=== PATIENT | female | born 1960 | race Caucasian/White ===

== ENCOUNTER 2016-08-05 15:43 | Observation (INO) ==
[2016-08-05] MEDS ORDERED: Ondansetron 4 MG/2 ML VIAL IVP ONE ×2 (17:11→21:00)
[2016-08-05] MEDS ORDERED: 0.9 % Sodium Chloride 1,000 ML IVC ONE (17:11)
--- NOTE | 2016-08-05 17:17 | Emergency Department Note ---
Disposition Clinical Impression: Abdominal pain Qualifiers: Abdominal location: right lower quadrant Qualified Code(s): R10.31 - Right lower quadrant pain Disposition: Home, Self-Care Condition: Good Additional Instructions: 1) Follow up with your primary care doctor in the next 5 days or return to the emergency department sooner if symptoms worsen. 2) continue stay well-hydrated and plenty of fluids. 3) Tylenol and Motrin for pain Prescriptions: Ondansetron HCl [Zofran] 4 mg PO Q4H PRN #7 tablet PRN Reason: Nausea Referrals: Rylie Aleman [facility] MACHINE [employer]NER [Primary Care Provider] - Reasons to return: As we discussed, any worsening or returning symptoms which include but are not limited to abdominal pain, fevers, nausea, vomiting or any other concerning symptoms Forms: Work/School Release, ED Satisfaction Letter Time of Disposition: 18:34 Abdominal Pain HPI - General Chief Complaint: ED Abdominal Pain Stated Complaint: nausea, abd pain Time Seen by Provider: 08/05/16 16:57 Source: patient Mode of arrival: ambulatory Limitations: no limitations Nursing Notes Reviewed: Yes Vital Signs Reviewed: Yes - History of Present Illness HPI Narrative: 55 yo female presents for evaluation of abdominal pain. Patient states she has had diffuse and generalized abdominal pain for about 1 week. [place] some nausea with emesis. Patient and noted yesterday that the pain seemed to localize in the right lower quadrant. Patient states it pain is worse with direct palpation over the right lower quadrant. No fevers. No diarrhea or constipation. No chest pain stress breath. No dysuria. No hematuria. No vaginal discharge or bleeding. Patient denies any abdominal surgeries. Pain Scale: 8 - Related Data Previous Rx's Medication Instructions Recorded Ondansetron HCl [Zofran] 4 mg PO Q4H PRN #7 tablet 08/05/16 Allergies Allergy/AdvReac Type Severity Reaction Status Date / Time No Known Allergies Allergy Verified 08/05/16 15:48 All systems ED: reviewed and negative except as stated. Constitutional: Reports: as per HPI. Denies: fever Eyes: Reports: as per HPI ENT ED: Reports: as per HPI Cardiovascular: Reports: as per HPI. Denies: chest pain, palpitations Respiratory: Reports: as per HPI. Denies: cough, dyspnea Gastrointestinal: Reports: as per HPI, abdominal pain, nausea. Denies: vomiting , diarrhea, constipation Genitourinary: Reports: as per HPI Musculoskeletal: Reports: as per HPI Integumentary: Reports: as per HPI Neurological: Reports: as per HPI Psychiatric: Reports: as per HPI Endocrine: Reports: as per HPI Abdominal Pain PMH - Past Medical History Medical history: Reports: no medical history Female Surgical History: Reports: orthopedic, other Psychiatric history: Reports: no psych history - Social History Smoking status: Former smoker Alcohol use: Reports: none Drug use: Reports: none Physical Exam - General Limitations: no limitations General appearance: alert, in no apparent distress - Head Head exam: normocephalic, normal inspection - Eye Eye exam: Present: normal appearance, EOMI - ENT ENT exam: normal exam, mucous membranes moist - Neck Neck exam: Present: normal inspection, trachea midline - Chest Chest inspection: Present: normal inspection, symmetric chest wall rise - Respiratory Respiratory exam: Present: normal lung sounds bilaterally. Absent: respiratory distress - Cardiovascular Cardiovascular exam: Present: regular rate, normal rhythm - Abdominal Exam Abdominal exam: Present: soft, tenderness (All to moderate tenderness in the right lower quadrant), guarding (Voluntary), normal bowel sounds. Absent: distention, rebound, rigidity - Extremities Exam Extremities exam: Present: normal inspection. Absent: pedal edema - Expanded Lower Extremity Exam Neurovascular/Tendon exam: Present: normal capillary refill - Back Exam Back exam: Present: normal inspection. Absent: CVA tenderness (R), CVA tenderness (L) - Neurological Exam Neurological exam: Present: alert, CN II-XII intact - Skin Skin exam: Present: warm, dry, intact, normal color Course Course Narrative: Patient seen and examined. Patient's in no acute distress. Patient sitting at bedside. Patient does have mild to moderate tenderness the right lower quadrant. Vague abdominal symptoms prior to. Patient will get basic lab work, CT abdomen and pelvis with IV contrast. Patient denies any pain medicine. - Reevaluation(s) Reevaluation #1: The patient's resting comfortably. Talking on the phone. No pain at this time. Time: 18:31 Vital Signs Temperature 97.2 F L 08/05/16 15:48 Pulse Rate 60 08/05/16 15:48 Respiratory Rate 18 08/05/16 15:48 Blood Pressure 148/64 08/05/16 15:48 O2 Sat by Pulse Oximetry 100 08/05/16 15:48 Temperature 97.2 F L 08/05/16 15:48 Pulse Rate 60 08/05/16 15:48 Respiratory Rate 18 08/05/16 15:48 Blood Pressure 148/64 08/05/16 15:48 O2 Sat by Pulse Oximetry 100 08/05/16 15:48 Oxygen Delivery Oxygen Delivery Room Air Abdominal Pain - MDM Narrative Medical decision making narrative: I examined this patient and my medical decision-making was reviewed with the ABSORPTION AND ADSORPTION ENGINEER/PA/Advanced Practice Nurse/Resident Physician. I agree with the documented findings, disposition and treatment plan as described except to the extent set forth below. Patient presents today as evaluated by myself and Dr. Kat, I agree with his evaluation management plan [place] the patient stay. Patient's evidence of right lower quadrant abdominal pain nonsurgical abdomen at this morning for pain. No back pain no chest pain no fevers. No vomiting. Penetrated make a little more comfortable get some lab workup urinalysis and CT of her abdomen to rule out intra-abdominal pathology. She is in agreement with plan. - Lab Data Lab results reviewed: Yes I reviewed the patient's lab results. Result diagrams: 08/05/16 17:27 08/05/16 17:27 Lab Results 08/05/16 08/05/16 08/05/16 Range/Units 17:27 17:27 18:07 WBC 5.1 (4.3-11.1) K/mcL RBC 4.31 (3.82-4.97) M/mcL Hgb 13.4 (11.5-15.4) g/dL Hct 39.3 (35.3-44.9) % MCV 91.2 (83.0-100.0) fL MCH 31.1 (28.0-33.3) pg MCHC 34.1 (31.6-35.5) g/dL RDW 11.9 (11.5-14.5) % Plt Count 296 (140-400) K/mcL MPV 9.5 (9.4-12.4) fL Immature Gran % 0.2 (0-4) % Seg Neutrophils % 64.1 % Lymphocytes % 24.9 % Monocytes % 7.8 % Eosinophils % 2.0 % Basophils % 1.0 % Neutrophils # 3.3 (1.6-8.9) K/mcL Lymphocytes # 1.3 (0.6-4.6) K/mcL Monocytes # 0.4 (0.0-1.3) K/mcL Eosinophils # 0.1 (0.0-0.6) K/mcL Basophils # 0.1 (0.0-0.2) K/mcL Sodium 141 (136-145) mEq/L Potassium 4.0 (3.5-4.5) mEq/L Chloride 106 (98-109) mEq/L Carbon Dioxide 24 (19-29) mEq/L BUN 12 (7-20) mg/dL Creatinine 0.81 (0.57-1.11) mg/dL Est GFR ( Amer) > 60 (> 60) Est GFR (Non-Af Amer) > 60 (> 60) BUN/Creatinine Ratio 15 (6-26) Glucose 96 (70-99) mg/dL Calculated Osmolality 292 (280-300) Calcium 9.6 (8.6-10.8) mg/dL Total Bilirubin 0.6 (0.2-1.2) mg/dL Direct Bilirubin 0.2 (0.0-0.5) mg/dL Indirect Bilirubin 0.4 (0.0-1.2) mg/dL AST 26 (5-34) Units/L ALT 13 (0-55) Units/L Alkaline Phosphatase 74 (38-126) Units/L Serum Total Protein 7.5 (6.0-8.3) g/dL Albumin 4.1 (3.5-5.0) g/dL Globulin 3.4 (2.4-3.5) g/dL Albumin/Globulin Ratio 1.2 (1.1-2.2) Lipase 32 (8-78) Units/L Urine Color Yellow (Yellow) Urine Clarity Clear (Clear) Urine pH 7.0 (5.0-8.0) pH Units Ur Specific [place] 1.007 L (1.010-1.025) Urine Protein Negative (Neg-Trace) mg/dL Urine Glucose (UA) Normal (Normal) mg/dL Urine Ketones Negative (Negative) mg/dL Urine Blood Negative (Negative) Urine Nitrite Negative (Negative) Urine Bilirubin Negative (Negative) Urine Urobilinogen Normal (Normal) mg/dL Ur Leukocyte Esterase Negative (Negative) Ur Culture Indicated? NO (NO) - EKG Data EKG attestation: Yes I reviewed and interpreted this EKG. EKG shows normal: sinus rhythm Rate: bradycardia Rhythm: NSR [place]/QRS: normal Q waves: v1 Interpretation: no acute changes
[2016-08-05 17:35] LABS: Basophils # 0.1 K/mcL (0.0-0.2); Eosinophils # 0.1 K/mcL (0.0-0.6); Hematocrit 39.3 % (35.3-44.9); Hemoglobin 13.4 g/dL (11.5-15.4); Immature Granulocytes % 0.2 % (0-4); Lymphocytes # 1.3 K/mcL (0.6-4.6); Lymphocytes % 24.9 %; Mean Corpuscular HGB Conc 34.1 g/dL (31.6-35.5); Mean Corpuscular Hemoglobin 31.1 pg (28.0-33.3); Mean Corpuscular Volume 91.2 fL (83.0-100.0); Mean Platelet Volume 9.5 fL (9.4-12.4); Monocytes # 0.4 K/mcL (0.0-1.3); Monocytes % 7.8 %; Neutrophils # 3.3 K/mcL (1.6-8.9); Platelet Count 296 K/mcL (140-400); Red Blood Count 4.31 M/mcL (3.82-4.97); Red Cell Distribution Width 11.9 % (11.5-14.5); Segmented Neutrophils % 64.1 %
[2016-08-05 17:50] LABS: Alanine Aminotransferase 13 Units/L (0-55); Albumin 4.1 g/dL (3.5-5.0); Albumin/Globulin Ratio 1.2 (1.1-2.2); Alkaline Phosphatase 74 Units/L (38-126); Aspartate Amino Transferase 26 Units/L (5-34); BUN/Creatinine Ratio 15 (6-26); Bilirubin,Direct 0.2 mg/dL (0.0-0.5); Bilirubin,Indirect 0.4 mg/dL (0.0-1.2); Bilirubin,Total 0.6 mg/dL (0.2-1.2); Blood Urea Nitrogen 12 mg/dL (7-20); Calcium 9.6 mg/dL (8.6-10.8); Carbon Dioxide 24 mEq/L (19-29); Chloride 106 mEq/L (98-109); Globulin 3.4 g/dL (2.4-3.5); Glucose 96 mg/dL (70-99); Lipase 32 Units/L (8-78); Osmolality,Calculated 292 (280-300); Sodium 141 mEq/L (136-145); Total Protein 7.5 g/dL (6.0-8.3); eGFR For African Americans > 60 (> 60); eGFR For Non-African Americans > 60 (> 60)
[2016-08-05 18:19] LABS: Bilirubin,Urine Negative (Negative); Blood,Urine Negative (Negative); Clarity,Urine Clear (Clear); Color,Urine Yellow (Yellow); Glucose,Urine (UA) Normal (Normal); Ketones,Urine Negative (Negative); Leukocyte Esterase,Urine Negative (Negative); Nitrite,Urine Negative (Negative); Protein,Urine Negative (Neg-Trace); Specific Gravity,Urine 1.007 (1.010-1.025); Urobilinogen,Urine Normal (Normal)
--- NOTE | 2016-08-05 18:53 | Emergency Department Note ---
Disposition Clinical Impression: Acute appendicitis Qualifiers: Acute appendicitis type: unspecified acute appendicitis type Qualified Code(s) : K35.80 - Unspecified acute appendicitis Abdominal pain Qualifiers: Abdominal location: right lower quadrant Qualified Code(s): R10.31 - Right lower quadrant pain Disposition: Admitted As Inpatient Condition: Good Prescriptions: Ondansetron HCl [Zofran] 4 mg PO Q4H PRN #7 tablet PRN Reason: Nausea Referrals: Rylie Aleman, MANAGER [employer] [Primary Care Provider] - Forms: ED Satisfaction Letter, Work/School Release Abdominal Pain HPI - General Chief Complaint: ED Abdominal Pain Stated Complaint: nausea, abd pain Time Seen by Provider: 08/05/16 16:57 Source: patient Mode of arrival: ambulatory - History of Present Illness Pain Scale: 8 - Related Data Allergies Allergy/AdvReac Type Severity Reaction Status Date / Time No Known Allergies Allergy Verified 08/05/16 15:48 Constitutional: Reports: as per HPI. Denies: fever Eyes: Reports: as per HPI ENT ED: Reports: as per HPI Cardiovascular: Reports: as per HPI. Denies: chest pain, palpitations Respiratory: Reports: as per HPI. Denies: cough, dyspnea Gastrointestinal: Reports: as per HPI, abdominal pain, nausea. Denies: vomiting , diarrhea, constipation Genitourinary: Reports: as per HPI Musculoskeletal: Reports: as per HPI Integumentary: Reports: as per HPI Neurological: Reports: as per HPI Psychiatric: Reports: as per HPI Endocrine: Reports: as per HPI Abdominal Pain PMH - Past Medical History Medical history: Reports: no medical history Female Surgical History: Reports: orthopedic, other Psychiatric history: Reports: no psych history - Social History Smoking status: Former smoker Alcohol use: Reports: none Drug use: Reports: none Physical Exam - General Limitations: no limitations General appearance: alert, in no apparent distress Course Course Narrative: This documentation is a continuation of the prior documentation. - Reevaluation(s) Reevaluation #1: Repeat abdominal exam shows moderate tenderness to deep palpation right lower quadrant. Voluntary guarding. No rebound. Patient does not want any pain medicine. Time: 18:53 Vital Signs Temperature 97.2 F L 08/05/16 15:48 Pulse Rate 60 08/05/16 15:48 Respiratory Rate 18 08/05/16 15:48 Blood Pressure 148/64 08/05/16 15:48 O2 Sat by Pulse Oximetry 100 08/05/16 15:48 Temperature 97.2 F L 08/05/16 15:48 Pulse Rate 60 08/05/16 15:48 Respiratory Rate 18 08/05/16 15:48 Blood Pressure 148/64 08/05/16 15:48 O2 Sat by Pulse Oximetry 100 08/05/16 15:48 Oxygen Delivery Oxygen Delivery Room Air Abdominal Pain - MDM Narrative Medical decision making narrative: 55-year-old female present for evaluation abdominal pain. Patient states that her pain was generalized in the past 24 hours or so it has became more localized in the right lower quadrant. No fevers. Patient's lab work reveals no leukocytosis with normal chemistries. Patient stated that she did not want any pain medicine. Patient's CAT scan shows acute appendicitis. Patient received IV fluid hydration and Antiemetics. Patient's been nothing by mouth since noon. Spoke with Dr. Arrieta who states that he will be in to see the patient. Patient's updated on plan of care and agree. - Lab Data Lab results reviewed: Yes I reviewed the patient's lab results. Result diagrams: 08/05/16 17:27 08/05/16 17:27 Lab Results 08/05/16 08/05/16 08/05/16 Range/Units 17:27 17:27 18:07 WBC 5.1 (4.3-11.1) K/mcL RBC 4.31 (3.82-4.97) M/mcL Hgb 13.4 (11.5-15.4) g/dL Hct 39.3 (35.3-44.9) % MCV 91.2 (83.0-100.0) fL MCH 31.1 (28.0-33.3) pg MCHC 34.1 (31.6-35.5) g/dL RDW 11.9 (11.5-14.5) % Plt Count 296 (140-400) K/mcL MPV 9.5 (9.4-12.4) fL Immature Gran % 0.2 (0-4) % Seg Neutrophils % 64.1 % Lymphocytes % 24.9 % Monocytes % 7.8 % Eosinophils % 2.0 % Basophils % 1.0 % Neutrophils # 3.3 (1.6-8.9) K/mcL Lymphocytes # 1.3 (0.6-4.6) K/mcL Monocytes # 0.4 (0.0-1.3) K/mcL Eosinophils # 0.1 (0.0-0.6) K/mcL Basophils # 0.1 (0.0-0.2) K/mcL Sodium 141 (136-145) mEq/L Potassium 4.0 (3.5-4.5) mEq/L Chloride 106 (98-109) mEq/L Carbon Dioxide 24 (19-29) mEq/L BUN 12 (7-20) mg/dL Creatinine 0.81 (0.57-1.11) mg/dL Est GFR ( Amer) > 60 (> 60) Est GFR (Non-Af Amer) > 60 (> 60) BUN/Creatinine Ratio 15 (6-26) Glucose 96 (70-99) mg/dL Calculated Osmolality 292 (280-300) Calcium 9.6 (8.6-10.8) mg/dL Total Bilirubin 0.6 (0.2-1.2) mg/dL Direct Bilirubin 0.2 (0.0-0.5) mg/dL Indirect Bilirubin 0.4 (0.0-1.2) mg/dL AST 26 (5-34) Units/L ALT 13 (0-55) Units/L Alkaline Phosphatase 74 (38-126) Units/L Serum Total Protein 7.5 (6.0-8.3) g/dL Albumin 4.1 (3.5-5.0) g/dL Globulin 3.4 (2.4-3.5) g/dL Albumin/Globulin Ratio 1.2 (1.1-2.2) Lipase 32 (8-78) Units/L Urine Color Yellow (Yellow) Urine Clarity Clear (Clear) Urine pH 7.0 (5.0-8.0) pH Units Ur Specific [place] 1.007 L (1.010-1.025) Urine Protein Negative (Neg-Trace) mg/dL Urine Glucose (UA) Normal (Normal) mg/dL Urine Ketones Negative (Negative) mg/dL Urine Blood Negative (Negative) Urine Nitrite Negative (Negative) Urine Bilirubin Negative (Negative) Urine Urobilinogen Normal (Normal) mg/dL Ur Leukocyte Esterase Negative (Negative) Ur Culture Indicated? NO (NO) - Radiology Data Radiology results reviewed: Yes I reviewed the patient's radiology results. Abdomen/Pelvis CT 08/05/16 17:13 IMPRESSION: Acute appendicitis with mild pelvic free fluid. Benign appearing cystic lesion within the pancreatic tail. Diverticulosis coli. D/ / Iain Tan MD / Iain Tan MD Interpreting Provider: Iain Tan MD S.B.A.R. - S.B.A.R. Situation: Demographics Background: Presenting Complaint Assessment: Vital Signs, Course and respsone to treatment, Exam Concerns, Patient/Family Expectation, Pertinant Lab Results Recommendation: Barrier(s) to disposition, Recommendation based on pending studies, treatments, or consults
[2016-08-05] MEDS ORDERED: Bupivacaine/EPI 1:200k 0.25%PF 30 ML VIAL ONE (19:29)
[2016-08-05] MEDS ORDERED: *HR* FentaNYL (PF) 100 MCG/2 ML VIAL ONE (19:36)
[2016-08-05] MEDS ORDERED: *HR* Propofol 200 MG/20 ML VIAL IVP ONE (19:36)
[2016-08-05] MEDS ORDERED: Lidocaine -MPF 2% 2 ML VIAL ONE (19:36)
[2016-08-05] MEDS ORDERED: Dexamethasone 4 MG/ML VIAL ONE (19:36)
[2016-08-05] MEDS ORDERED: Ondansetron 4 MG/2 ML VIAL ONE ×2 (19:36→20:56)
[2016-08-05] MEDS ORDERED: *HR* Midazolam HCl 2 MG/2 ML VIAL ONE (19:36)
[2016-08-05] MEDS ORDERED: *HR* Rocuronium Bromide 50 MG/5 ML VIAL ONE (19:36)
[2016-08-05] MEDS ORDERED: Lidocaine -MPF 4% 5 ML AMPUL ONE (19:37)
--- NOTE | 2016-08-05 19:48 | General Surg History&Physical ---
Date of Encounter: 08/05/16 Time of Encounter: 19:20 History of Present Illness Chief complaint: Right lower quadrant abdominal pain HPI: Ms. Lopez is a 55 year old female who presents to the emergency department with approximately 36-48 hour history of progressive right lower quadrant abdominal pain. The patient indicates that she has "been ill" for the past several weeks describing epigastric abdominal pain and pyrosis but in the last 48 hours she has had abrupt onset of right lower quadrant abdominal pain which has progressed in severity. This ultimately prompted the patient to present to the emergency department for further evaluation and treatment. White count was normal but CT scan was abnormal demonstrating a dilated appendix measuring approximately 13 mm in diameter with surrounding inflammatory changes and edema compatible with acute appendicitis. Past medical history is unremarkable; the patient denies any history of cardiac , pulmonary, or renal disease. No hypertension or diabetes. Medications: Benadryl when necessary sleep Allergies: No known drug allergies Surgical history: Tubal ligation, carpal tunnel release Social history: Patient is , lives at home with her spouse; she is G3, P2 ; she does not smoke, she quit recently 30 years ago. She denies any alcohol or illicit drug use. 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 Family history is noncontributory Physical examination: Thin age-appropriate, female resting comfortably in her hospital bed. She is afebrile, 97.9; pulse 56, respirations 18, blood pressure 133/84. Skin is warm, without obvious jaundice Lungs: Clear to auscultation, no abdominal pain with deep inspiration Cardiac: Rate was slow but without irregularity, no appreciable murmurs Abdomen: Soft, tender in the right lower quadrant without discernible masses. It was no referred pain from the left lower quadrant. No rebound. Bowel sounds were active Extremities: No obvious clubbing cyanosis or edema Laboratories: White count 5.1, hemoglobin 13.4, hematocrit 39.3; platelet count 96,000. Electrolytes, BUN, creatinine - within normal limits. LFTs also within normal limits. Urinalysis was unremarkable. Impression: A 55-year-old female with progressive abdominal pain for the last 48 hours. Signs and symptoms consistent with acute appendicitis corroborated by CT findings. The patient is a good candidate for laparoscopic appendectomy and understands that an open appendectomy may become necessary. Risks of surgery include hemorrhage, infection, intra-abdominal abscess, injury to adjacent structures and possible removal of a normal appendix. Alternative to surgery is admission, IV pain medication, antibiotics, serial abdominal exams with discharge home if her symptoms subside. Risks of this treatment include worsening acute appendicitis including perforation which would then lead to a much more complicated surgery and prolonged recovery. The patient has discussed the situation with her and is willing to proceed with surgery. Surgical consent has been obtained. Postoperative care will be rendered on 3A.. . Past Med Surg Social Fam HX - Past Medical History Medical history: no medical history Psychiatric history: no psych history - Social History Smoking Status: Former smoker Alcohol use: none Drug use: none Medications and Allergies DiphenhydraMINE [Benadryl] 25 mg PO HS PRN 08/05/16 [History] Allergies No Known Allergies Allergy (Verified 08/05/16 15:48) Review of Systems All systems PM: A 10-system review of systems was performed and is negative for pertinent findings except as documented above in the HPI. General Surgery Exam Initial Vital Signs Temp Pulse Resp BP Pulse Ox 97.2 F L 60 18 148/64 100 08/05/16 15:48 08/05/16 15:48 08/05/16 15:48 08/05/16 15:48 08/05/16 15:48 Results - Labs 08/05/16 17:27 08/05/16 17:27 Abnormal lab results Ur Specific [place] 1.007 (1.010-1.025) L 08/05/16 18:07 All other labs normal.
--- NOTE | 2016-08-05 19:50 | Anesthesia Evaluation PreOp ---
Date of Encounter: 08/05/16 Time of Encounter: 19:40 - Past History Planned Operation: Lap Appendectomy Cardiac History: Denies any Significant Hx Pulmonary History: Former smoker PROSTHETIC ASSISTANT History: Denies Any Significant HX Other Medical History: Denies Any Significant HX Anesthesia History: No Prior Anesthetic Complications : No Alcohol Use: none Drug use: none Medications and Allergies DiphenhydraMINE [Benadryl] 25 mg PO HS PRN 08/05/16 [History] Allergies No Known Allergies Allergy (Verified 08/05/16 15:48) - Meds/Allergy Pre-op Review Medications Reviewed: Yes Allergies Reviewed: Yes Beta Blockers on Current Med List: No Anesthesia Results - Labs 08/05/16 17:27 08/05/16 17:27 Anesthesia Exam O2 Sat Height 1.65 m Weight 61.235 kg O2 Sat by Pulse Oximetry 98 O2 Sat by Pulse Oximetry 100 Vital Signs Temp Pulse Resp BP Pulse Ox 97.2 F L 60 18 148/64 100 08/05/16 15:48 08/05/16 15:48 08/05/16 15:48 08/05/16 15:48 08/05/16 15:48 Height: 5'5 Weight: 135 lbs NPO (# of Hours): MN - HEENT Pupil (Motor): Pupils equal, EOMI Mallampati: II Teeth: Normal Oral Opening: Greater than 3 - PROSTHETIC ASSISTANT LOC: Oriented PROSTHETIC ASSISTANT Motor: Normal RUE, Normal LUE, Normal RLE, Normal LLE, Normal Face PROSTHETIC ASSISTANT Sensory: Normal: RUE, LUE, RLE, LLE, Face - Cardiac Rhythm: Regular Murmur: None JVD: No Carotid Bruit: No - Pulmonary Breath Sounds: bilateral Clear Respiratory Effort: Symmetrical Anesthesia Assess/Plan ASA Score: 1, E Modified [place] Scale for Level of Consciousness: Cooperative, oriented, and tranquil Anesthetic Plan: General Monitoring Plan: Standard Monitors Recovery Plan: PACU (Discussed GA, agrees to proceed)
[2016-08-05] MEDS ORDERED: Famotidine 20 MG/2 ML VIAL ONE (19:52)
[2016-08-05] MEDS ORDERED: CefOXitin 2,000 MG VIAL IVPB ONE (20:30)
[2016-08-05] MEDS ORDERED: Neostigmine Methylsulfate 3 MG/3 ML SYRINGE ONE (20:35)
[2016-08-05] MEDS ORDERED: Ketorolac 30 MG/ML VIAL ONE (20:44)
--- NOTE | 2016-08-05 20:56 | Operative Note ---
Date of procedure: 08/05/16 Pre-op diagnosis: Acute appendicitis Post-op diagnosis: same Procedure: Laparoscopic appendectomy Complications: None apparent Anesthesia: GETA Local Anesthetics: 0.25% Sensorcaine HCL with Epinephrine 1:200,000 SubQ (cc) ( 20 mL) Surgeon: Benito Arrieta Estimated blood loss (cc): 2 IV fluids (cc): 500 Specimen: Appendix Condition: stable Disposition: PACU Procedure in Detail: The patient was brought to the operating room where she was placed supine upon the operating table. The patient was appropriately identified as to person and procedure. The accuracy of this information was confirmed by the procedure team. The patient was intubated and anesthetized under the supervision of Dr. Moises Tapia. The abdomen was prepped and draped in usual sterile fashion. Several milliliters of 025% bupivacaine with 1-200,000 epinephrine was infiltrated into the infraumbilical skin. A small transverse incision was made. Dissection was carried to the fascia. The fascia was grasped and elevated. Additional bupivacaine with epinephrine was infiltrated before the fascia was incised. An 11 mm Xcel port was established. The rigid laparoscope was placed within the obturator to visualize passage through the layers of the anterior abdominal wall. Once the abdominal cavity was accessed, the obturator was replaced by the rigid laparoscope. The abdomen was insufflated with gaseous carbon dioxide. There was no obvious visible injury from establishing the port. Visualization 2 additional ports were placed in the midline suprapubic abdomen and in the left lower quadrant midclavicular line. Both sites were infiltrated with the bupivacaine with epinephrine solution. The appendix was readily identified and elevated. The mesoappendix was dissected with endoscopic [place] dissectors. Appendix was transected at its junction with the cecum using an Ethicon ETS 45 mm stapler (blue cartridge). The mesoappendix was then divided with the Ethicon ETS stapler using a vascular cartridge. Once the appendix was from the surrounding structures and was placed in endoscopic pouch and removed via the infraumbilical opening. The appendix was enlarged and edematous consistent with early acute appendicitis. The specimen was retrieved and sent to pathology for analysis. The staple lines were inspected and found to be intact. Hemostasis was adequate. The pneumoperitoneum was then evacuated and the instrumentation removed. The fascia of the infraumbilical opening was closed with interrupted [id number] of 0 Vicryl using S retractors. The skin edges of the port sites were approximated with subcuticular 4-0 Vicryl. The incisions were sealed with Dermabond dermal adhesive. The patient was taken to recovery. Needle, sponge, and instrument counts were correct at the close of the case. Total volume of 0.25% bupivacaine with 1-200,000 units epinephrine used during this procedure, 20 mL.
[2016-08-05] MEDS ORDERED: Ringers Solution, Lactated 1,000 ML ONE (21:02)
--- NOTE | 2016-08-05 21:03 | Anesthesia Evaluation Post Op ---
Date of Encounter: 08/05/16 Time of Encounter: 21:10 - Vital Signs Vital Signs: Vital Signs/O2 Sat/Glucose, Most Current Temp Pulse Resp BP Pulse Ox 08/05/16 19:30 0 0/0 08/05/16 19:07 97.9 F 56 133/84 98 - Lungs Lungs: Clear Ascult./Percussion - Airway Airway: Non-obstructed - Cardiovascular Regular Rate - Mental Status Mental Status: Alert & Oriented, Answers Appropriately - Pain Pain Scale: 0 - Nausea Vomiting Nausea Vomiting: Not Present - Hydration Hydration: NPO - Discharge PostOp Status: Transfer Patient to floor
[2016-08-05] MEDS ORDERED: Acetaminophen IV 1,000 MG/100 ML INFUS..BTL ONE (21:10)
[2016-08-05] MEDS ORDERED: Acetaminophen IV 1,000 MG/100 ML INFUS..BTL IVPB ONE (21:15)
[2016-08-05] MEDS ORDERED: *HR* HYDROmorphone (PF) 1 MG/ML SYRINGE IVP PRN ×2 (21:52)
[2016-08-05] MEDS ORDERED: *HR* OxyCODONE/APAP 5/325 TABLET PO PRN (21:52)
[2016-08-05] MEDS ORDERED: *HR* Promethazine 25 MG/ML VIAL IVP PRN (21:52)
[2016-08-05] MEDS ORDERED: Ringers Solution, Lactated 1,000 ML IVC SCH (21:52)
[2016-08-05] MEDS ORDERED: Ringers Solution, Lactated 500 ML IVC ONE (21:52)
[2016-08-05] MEDS ORDERED: Ondansetron 4 MG/2 ML VIAL IVP PRN (21:52)
[2016-08-05] MEDS ORDERED: Acetaminophen 325 MG TABLET PO PRN (21:52)
[2016-08-05] MEDS: Pantoprazole 40 MG VIAL IVP SCH (23:19)
[2016-08-06 05:14] LABS: Basophils % 0.2 %; Hematocrit 36.3 % (35.3-44.9); Hemoglobin 12.4 g/dL (11.5-15.4); Immature Granulocytes % 0.4 % (0-4); Lymphocytes # 0.6 K/mcL (0.6-4.6); Lymphocytes % 10.1 %; Mean Corpuscular HGB Conc 34.2 g/dL (31.6-35.5); Mean Corpuscular Hemoglobin 31.1 pg (28.0-33.3); Mean Platelet Volume 9.9 fL (9.4-12.4); Monocytes # 0.1 K/mcL (0.0-1.3); Monocytes % 1.8 %; Platelet Count 268 K/mcL (140-400); Red Blood Count 3.99 M/mcL (3.82-4.97); Red Cell Distribution Width 11.9 % (11.5-14.5); Segmented Neutrophils % 87.5 %
[2016-08-06] MEDS: Pantoprazole 40 MG VIAL IVP SCH (08:24)
[2016-08-06 10:44] VITALS: BP 88/53
--- NOTE | 2016-08-06 13:27 | General Surgery Progress Note ---
Date of Encounter: 08/06/16 Time of Encounter: 13:00 Subjective Patient reports: feels better Narrative: General Sugery - Progress note / discharge summary POD #1 - patient feeling much improved with resolution of right lower quadrant abdominal pain. Patient admits to mild to moderate infraumbilical pain related to the port site. She denies any nausea, she is tolerating a regular diet. Patient is afebrile, 98.4, pulse 60, respirations 16, blood pressure ranging 88/53-97/61. Lungs: Clear, no abdominal pain with deep inspiration Cardiac: Regular rate, overnight she was periodically bradycardic as well as 50 to put blood pressure has remained low but stable. Abdomen: Soft, minimal infraumbilical tenderness. No obvious intra- abdominal masses. No rebound. Active bowel sounds. Port sites clean, dry and healing well. Laboratories: White count 5.7, hemoglobin 12.4 with hematocrit 36.3. Pathology pending Impression: Acute appendicitis; postoperative day 1 status post laparoscopic appendectomy Patient doing well postop. Plan: Discharge home Follow-up office on 08/12/16; patient to call office Monday a.m. to make this appointment. Instructions: Activity as tolerated, lifting limited to less than 20 pounds Patient may ambulate, climb stairs. Patient may shower, wash incisions with soap and water Regular diet Tylenol, ibuprofen, Motrin, Advil, etc. as needed for pain Prescription for hydrocodone 5/325 one every 6 hours as needed for pain not relieved by [id number] medications. Follow up my office, 08/12/16. Patient to call office, 08/08/2016 to make appointment Objective Vital Signs - Last 8 Hours Temp Pulse Resp BP Pulse Ox 08/06/16 10:44 98.4 F 60 16 88/53 97 08/06/16 06:43 98.1 F 52 14 97/59 98 Intake and Output 08/05/16 08/06/16 08/06/16 23:59 07:59 15:59 Intake Total 100 / 100 740 / 740 360 / 360 Output Total 502 / 502 1150 / 1150 Balance -402 / -402 -410 / -410 360 / 360 Intake: IV Fluids 100 / 100 500 / 500 Lactated Ringers 500 ML @ 500 / 500 1000 mls/hr IVC .Q30M ONE Rx#:[id number] Ofirmev 1,000 mg In 100 100 / 100 ml @ 400 mls/hr IVPB ONCE ONE Rx#:[id number] Oral 240 / 240 360 / 360 Output: Urine 500 / 500 1150 / 1150 Estimated Blood Loss 2 / 2 Other: Meal Breakfast Percent of Meal Consumed 95% - Labs 08/06/16 04:35 08/05/16 17:27 - VTE Documentation of Mechanical Device: Intermittent pneumatic compression device Consult Discharge Plan - Plan Referrals: Rylie Aleman, SEED SERVICE ADVISOR [Primary Care Provider] -
--- NOTE | 2016-08-06 13:31 | Discharge Summary ---
Outpatient Proc Discharge Plan - Plan Additional Instructions: Regular diet Patient may shower, wash incisions with soap and water Activities as tolerated, lifting limited to less than 20 pounds Follow-up office, 08/12/16 Tylenol, ibuprofen, Motrin, Advil, etc. as needed for pain Prescription for hydrocodone/acetaminophen 5/325 one every 6 hours as needed for pain not really buy [id number] medications Patient is not cleared to return to work until seen in the office, 08/12/16. Prescriptions: HYDROcodone/Acet 5/325 mg [[place] 5-325 mg] 1 tab PO Q6H PRN #15 tab PRN Reason: Pain Home Medications: DiphenhydraMINE [Benadryl] 25 mg PO HS PRN 08/05/16 [History] Acetaminophen [Tylenol] 650 mg PO Q6HR PRN #0 tablet 08/06/16 [Rx] HYDROcodone/Acet 5/325 mg [[place] 5-325 mg] 1 tab PO Q6H PRN #15 tab 08/06/16 [Rx ]
--- NOTE | 2016-08-08 12:11 | Electrocardiograph Report ---
[facility] Test Date: 2016-08-05 Pat Name: ISHMAEL SWANN Department: 105 Room: 06 Gender: F Staff Radiologist: TITO : 1960 Requested By: Benito Arrieta Order Number: [id number] Reading MD: Eliseo Saldana DO Measurements Intervals [place] Rate: 50 P: 36 IL: 147 QRS: 53 QRSD: 86 T: 56 QT: 485 QTc: 459 Interpretive Statements Sinus bradycardia Electronically Signed On 08-08-16 12:10:32 EST by Eliseo Saldana DO
== END 2016-08-06 14:45 | disposition home or self-care (01) ==
LOC: 3ANU 15:43 → EMEROO 15:43 → 3ANU 19:30
PROVIDERS: ADMIT Surgery; ATTEND Surgery